=== PATIENT | male | born 1965 | race Caucasian/White ===

== ENCOUNTER 2022-08-09 14:36 | Outpatient (CLI) | payer OTHER ==
[2022-08-09 16:38] LABS: Hemoglobin 14.5 g/dL (13.5-17.5); Mean Corpuscular HGB CONC 32.7 g/dL (32.0-36.0); Mean Corpuscular Hemoglobin 28.9 pg (27.0-33.0); Mean Corpuscular Volume 88.2 fl (81.2-95.1); Mean Platelet Volume 10.9 fl (7.4-10.4); Platelet Count 597 10x3/uL (150-450); Red Blood Cell (RBC) Count 5.02 10x6/uL (4.32-5.72); White Blood Cell (WBC) Count 12.8 10x3/uL (3.5-10.5)
[2022-08-09 16:47] LABS: PTT 27.6 sec (22.0-33.0); Prothrombin Time 10.9 sec (9.5-12.1)
[2022-08-09 16:59] LABS: Anion Gap 19 mmol/L (10-20); BUN (Urea Nitrogen) 14 mg/dL (8.4-25.7); Calc. Creatinine Clearance 0 mL/min (70-130); Calcium 10.6 mg/dL (7.8-10.44); Carbon Dioxide 19 mmol/L (22-29); Estimated GFR 103; Glucose 87 mg/dL (70-105); Potassium 4.6 mmol/L (3.5-5.1)
[2022-08-09 17:04] LABS: ALT (SGPT) 28 U/L (8-55); AST (SGOT) 24 U/L (5-34); Albumin 4.5 g/dL (3.5-5.0); Alkaline Phosphatase 105 U/L (40-110); Bilirubin, Direct 0.2 mg/dL (0.1-0.3); Bilirubin, Total 0.4 mg/dL (0.2-1.2); Protein, Total 7.5 g/dL (6.0-8.3)
[2022-08-09 17:53] LABS: Chloride 109 mmol/L (98-107); Sodium 142 mmol/L (136-145)
[2022-08-09 19:51] LABS: Hemoglobin A1c 5.1 % (4.0-6.0)
== END 2022-08-09 14:37 | disposition home or self-care (01) ==
LOC: CSHLAB 14:36
PROVIDERS: ATTEND Orthopaedic Surgery
DX: Z01.818 Encounter for other preprocedural examination (principal)
CPT/HCPCS: 80048; 80076; 83036; 85027; 85610; 85730; 93005; 93010

== ENCOUNTER 2022-08-10 06:34 | Day surgery (SDC) | payer OTHER ==
[2022-08-09 11:19] VITALS: BMI 35.3
[2022-08-10] MEDS ORDERED: Bupivacaine 0.25% HCL 30 ML VIAL ONE (08:27)
[2022-08-10] MEDS ORDERED: Bupivacaine HCl 0.5%/Epinephrine 1:200,000/PF 30 ml Vial ONE (08:27)
[2022-08-10] MEDS ORDERED: EPINEPHrine 1 MG/ML AMP ONE (08:28)
[2022-08-10] MEDS ORDERED: Bupivacaine PF 0.5% 30 ML VIAL ONE (08:28)
[2022-08-10] MEDS ORDERED: Fentanyl 100 MCG/2 ML VIAL ONE ×4 (08:34→12:53)
[2022-08-10] MEDS ORDERED: PROPOFOL 20 ML ONE (08:34)
[2022-08-10] MEDS ORDERED: Lidocaine 1% PF 5 ML VIAL ONE (08:35)
[2022-08-10] MEDS ORDERED: CEFAZOLIN 2 GM VIAL ONE (08:39)
[2022-08-10] MEDS ORDERED: Midazolam HCl 2 mg/2 ml Vial ONE (08:53)
[2022-08-10] MEDS ORDERED: Esmolol 100 MG/10 ML VIAL ONE (09:53)
[2022-08-10] MEDS ORDERED: Metoprolol Tartrate 5 MG/5 ML VIAL ONE (10:47)
[2022-08-10] MEDS ORDERED: Labetalol HCl 100 MG/20 ML VIAL ONE (10:47)
[2022-08-10] MEDS ORDERED: Dexamethasone 4 mg/ml Vial ONE (10:48)
[2022-08-10] MEDS ORDERED: Ondansetron PF 4 MG/2 ML Vial ONE (10:48)
[2022-08-10] MEDS ORDERED: Dexamethasone 20 MG/5 ML VIAL ONE (10:48)
[2022-08-10] MEDS ORDERED: Ketorolac Tromethamine 30 MG/ML VIAL ONE (12:05)
[2022-08-10] MEDS ORDERED: PHENYLEPHRINE-NS 100 MCG/ML 10 ML SYRINGE ONE (12:19)
[2022-08-10] MEDS ORDERED: CEFAZOLIN 1 GM VIAL ONE (12:44)
[2022-08-10] MEDS ORDERED: HYDROcodone/Acetaminophen 5/325 mg Tablet ONE (13:25)
== END 2022-08-10 14:05 | disposition home or self-care (01) ==
LOC: CSHSDC 06:34
PROVIDERS: ATTEND Orthopaedic Surgery
PROC: 0QSG0ZZ Reposition Right Tibia, Open Approach (ICD-10-PCS; principal; 2022-08-10)
PROC: 0QSQXZZ Reposition Right Toe Phalanx, External Approach (ICD-10-PCS; principal; 2022-08-10)
PROC: 0PST35Z Reposition Right Finger Phalanx with External Fixation Device, Percutaneous Approach (ICD-10-PCS; principal; 2022-08-10)
PROC: 0QSJ04Z Reposition Right Fibula with Internal Fixation Device, Open Approach (ICD-10-PCS; principal; 2022-08-10)
DX: S82.851A Displaced trimalleolar fracture of right lower leg, initial encounter for closed fracture (principal); S62.610A Displaced fracture of proximal phalanx of right index finger, initial encounter for closed fracture; S92.411A Displaced fracture of proximal phalanx of right great toe, initial encounter for closed fracture; F17.200 Nicotine dependence, unspecified, uncomplicated; J44.9 Chronic obstructive pulmonary disease, unspecified; I10 Essential (primary) hypertension; K21.9 Gastro-esophageal reflux disease without esophagitis; Z79.899 Other long term (current) drug therapy; X58.XXXA Exposure to other specified factors, initial encounter
CPT/HCPCS: C1713; C1776; J0171; J0690; J1100; J1885; J2250; J2405; J2704; J3010; S0020